=== PATIENT | female | born 1965 | race Caucasian/White ===

== ENCOUNTER → 2016-07-07 | Outpatient (CLI) | payer OTHER ==
[~2016-07-07] MED LIST: CALC-72 PO; CELE200C PO; CHOL20002 PO; DULO60CA7 PO; FEXO1TAB29 PO; FLAX1000 PO; FLUT9.9S NS; GABA600T2 PO; IBUP800T PO; LACT1CAP35 PO; LEVO125T PO; MIRT15TA PO; MULT-658 PO; OMEP20TA62 PO; QUET100T4 PO; SIMV20TA3 PO; TIZA4CAP PO; TRAM100T2 PO; TRAZ150T68 PO; VITA1TAB19 PO; ZIPR80CA2 PO; [UNRECOGNIZED DRUG - OTHER] PO
== END | disposition home or self-care (01) ==
LOC: CFH 08:59
PROVIDERS: ATTEND Physician Assistant
DX: Z12.31 Encounter for screening mammogram for malignant neoplasm of breast (principal); Z13.820 Encounter for screening for osteoporosis; M81.0 Age-related osteoporosis without current pathological fracture
CPT/HCPCS: 77080; G0202

== ENCOUNTER → 2016-12-29 | Outpatient (CLI) | payer OTHER ==
[~2016-12-29] MED LIST changes: +CALC-534 PO; -CALC-72 PO; +IBUP-1223 PO; -IBUP800T PO; +TRAZ150T62 PO; -TRAZ150T68 PO
== END | disposition home or self-care (01) ==
LOC: CFH 11:04
PROVIDERS: ATTEND Internal Medicine
DX: R10.2 Pelvic and perineal pain (principal); R11.2 Nausea with vomiting, unspecified
CPT/HCPCS: 76830

== ENCOUNTER → 2017-09-11 | Outpatient (CLI) | payer OTHER ==
[~2017-09-11] MED LIST changes: -TRAM100T2 PO; +TRAM100T33 PO
== END | disposition home or self-care (01) ==
LOC: CFH 12:40
PROVIDERS: ATTEND Nurse Practitioner Family
DX: M25.78 Osteophyte, vertebrae (principal); M50.10 Cervical disc disorder with radiculopathy, unspecified cervical region
CPT/HCPCS: 72141